=== PATIENT | male | born 1965 | race Two or more races ===

== ENCOUNTER 2019-06-24 21:37 | Inpatient (IN) | payer MEDICAID ==
[~2019-06-24] VITALS: Ht 165.1 cm; Wt 71.9 kg
[2019-06-24] MEDS ORDERED: NIFEdipine 10 MG CAP ONE (21:47)
[2019-06-24] MEDS ORDERED: NIFEdipine 10 MG CAP PO ONE (22:00)
[2019-06-24 22:34] LABS: Basophils # (auto) 0 uL; Basophils % (auto) 0.5 % (0.0-2.0); Eosinophils # (auto) 0.1 uL; Eosinophils % (auto) 1.9 % (0.0-7.0); Hematocrit 47.7 % (41.0-53.0); Hemoglobin 15.8 g/dL (13.5-17.5); Lymphocytes # (auto) 0.7 uL; Mean Corpuscular Hemoglobin 29.8 pg (28.0-32.0); Mean Corpuscular Volume 90.4 fL (80.0-100.0); Monocytes # (auto) 0.5 uL; Monocytes % (auto) 8.1 % (0.0-12.0); Neutrophils # (auto) 5.4 uL; Neutrophils % (auto) 79.5 % (37.0-80.0); Nucleated Red Blood Cells % 0.1 %; Platelet Count (auto) 138 10^3/uL (140-450); Red Blood Cells 5.28 10^6/uL (4.5-5.90); Red Cell Distribution Width 13.7 % (11.8-14.3); White Blood Cell 6.8 10^3/uL (4.4-10.8)
[2019-06-24] MEDS ORDERED: HYDROcodone-ACET 7.5/325MG TAB PO ONE (22:45)
[2019-06-24 22:50] LABS: Albumin 3.2 g/dL (3.4-5.0); BUN/Creatinine Ratio 13.8; Calcium 8.3 mg/dL (8.5-10.1); Magnesium 1.8 mg/dL (1.6-2.6); Potassium 4.2 mmol/L (3.5-5.1)
[2019-06-24 22:55] LABS: Bilirubin, Total 0.6 mg/dL (0.2-1.0); Total Protein 7.7 g/dL (6.4-8.2)
[2019-06-25] MEDS ORDERED: PIPERACILLIN-TAZOB 3.375GM 100 ML IV ONE (00:15)
[2019-06-25] MEDS ORDERED: SODIUM CHLORIDE 0.9% 1,000 ML IV ONE (00:15)
[2019-06-25] MEDS ORDERED: ASPirin-EC 325mg tab PO ONE (00:15)
[2019-06-25 00:36] LABS: Urine Bacteria NONE SEEN /hpf (None Seen); Urine Blood Negative /uL (Negative); Urine Hyaline Cast FEW /lpf (0 - 2); Urine Mucus FEW (None Seen); Urine Specific Gravity 1.021 (1.001-1.035); Urine WBC 1 /hpf (0 - 3)
[2019-06-25 00:49] LABS: Alcohol, Urine < 3.0 mg/dL (0-5); Amphetamine Screen, Urine POSITIVE (NEGATIVE); Barbiturate Scree,Urine NEGATIVE (NEGATIVE); Benzodiazephine Screen, Urine NEGATIVE (NEGATIVE); Cannabinoid Screen, Urine NEGATIVE (NEGATIVE); Cocaine Screen, Urine NEGATIVE (NEGATIVE); Phencyclidine Screen, Urine NEGATIVE (NEGATIVE)
[2019-06-25 00:57] LABS: Opiate Scree,Urine NEGATIVE (NEGATIVE)
[2019-06-25] MEDS ORDERED: TEMAZEPAM 15 MG CAP PO PRN (02:30)
[2019-06-25] MEDS ORDERED: MORPHINE SULF INJ 2 MG/ML SYRINGE 1ML IV PRN (02:30)
[2019-06-25] MEDS ORDERED: ATORVASTATIN 20 MG TAB PO ONE (02:30)
[2019-06-25] MEDS ORDERED: METOPROLOL TARTRATE 25 MG TAB PO ONE (02:30)
[2019-06-25] MEDS ORDERED: ONDANSETRON HCL 4 MG/2 ML VIAL IV PRN (02:30)
[2019-06-25] MEDS ORDERED: ACETAMINOPHEN 325 MG TAB PO PRN (02:30)
[2019-06-25] MEDS ORDERED: NITROGLYCERIN 0.4 MG SL TAB SL PRN (02:30)
[2019-06-25] MEDS ORDERED: cefTRIAXone 1GM/50ML D5W 50 ML IV SCH (09:00)
[2019-06-25] MEDS ORDERED: ASPirin 81 mg TAB PO SCH (10:00)
[2019-06-25] MEDS ORDERED: AZITHROMYCIN 500MG/ 250ML 250 ML IV SCH (10:00)
[2019-06-25] MEDS: FAMOTIDINE 20 MG TAB PO SCH ×2 (10:06→22:21)
[2019-06-25] MEDS: METOPROLOL TARTRATE 25 MG TAB PO SCH ×2 (10:07→22:21)
[2019-06-25] MEDS ORDERED: guaiFENesin-DM 100/10mg/5ml SYR PO PRN (11:45)
[2019-06-25] MEDS: LOSARTAN POTASSIUM 50 MG TAB PO SCH (12:00)
[2019-06-25] MEDS: amLODIPine BESYLATE 5 MG TAB PO SCH (12:00)
--- NOTE | 2019-06-25 12:00 | NUR ---
RECEIVED REPORT FROM CHART CHANGERTAMARA TORREZ, WILL AWAIT PATIENT.
[2019-06-25 12:07] LABS: Cholesterol 112 mg/dL (< 200); HDL Cholesterol 48 mg/dL (40-59); LDL Cholesterol 65 mg/dL (< 100); Triglycerides 56 mg/dL (< 150)
[2019-06-25 12:48] VITALS: BP 124/93
--- NOTE | 2019-06-25 12:54 | NUR ---
RECEIVED PATIENT TO THE FLOOR. AWAKE ALERT AND ORIENTED. PATIENT INSTRUCTED ON THE PLAN OF CARE AND TO CALL NEEDED. BED LOCKED IN LOWEST POSITION WITH TWO SIDE RAILS UP AND CALL LIGHT IN REACH.
[2019-06-25 13:00] VITALS: BP 124/93
[2019-06-25] MEDS: IPRATROPIUM BROM 0.5 MG/2.5ML INH SOL NEB SCH ×3 (14:25→22:56)
[2019-06-25] MEDS: ALBUTEROL SULF 2.5 MG/0.5ML(0.5%) NEB SOLN NEB SCH ×3 (14:25→22:56)
[2019-06-25 14:30] VITALS: BP 126/96
--- NOTE | 2019-06-25 14:51 | NUR ---
D/C Planning Per consult for home health safety evaluation. Faxed order to [facility] Fax:). Per Sherry with [facility] patient has been accepted and service to start within 24-48hrs upon d/c day. Faxed order to [facility] Fax:) to obtain authorization.
--- NOTE | 2019-06-25 15:00 | NUR ---
PATIENT STATES HE DOESNT TAKE ANY HOME MEDICATIONS.
[2019-06-25] MEDS: levoFLOXacin 500MG 100 ML IV SCH (16:03)
--- NOTE | 2019-06-25 16:44 | NUR ---
Received followed up called from Nell with [facility] to provide authorization for home health [id number]
[2019-06-25 17:00] VITALS: BP 136/105
--- NOTE | 2019-06-25 17:10 | NUR ---
PAGED DR Anjali SPAULDING FOR PATIENT. PATIENT EXPERIENCING ANXIETY AND IS VERY RESTLESS. PATIENT STATES HE HAS NOT TAKEN ANY KIND OF DRUGS AND HAS ONLY BEEN AROUND PEOPLE WHO HAVE. I REQUESTED ANTI ANXIETY MEDICATION FOR PATIENT. ORDERS RECEIVED FOR XANAX 0.25 MG Q 12 PRN FOR ANXIETY.
[2019-06-25] MEDS ORDERED: ALPRAZolam 0.25 MG TAB PO PRN (17:15)
--- NOTE | 2019-06-25 17:41 | NUR ---
PATIENT C/O SOB. PATIENT IS ON O2 2 L NC AT THIS TIME WITH SATURATION OF 94 % PATIENT MEDICATED HOWEVER IS STILL EXPERIENCING ANXIETY. EDUCATED PATIENT ON THE PLAN OF CARE AND THE MEDICATION GIVEN. I ASKED PATIENT IF HE TAKES ANY RECREATIONAL MEDICATIONS AND HE STATES NO. I EXPLAINED TO PATIENT THE NEED TO KNOW SO WE CAN TREAT ANY SIDE EFFECTS HE MAY BE EXPERIENCING. PATIENT STILL DENIES. WILL CONTINUE TO MONITOR.
--- NOTE | 2019-06-25 18:15 | NUR ---
PATIENT VERY ANGRY BEING AGGRESSIVE WITH VOCABULARY, AND ACCUSING NURSES OF GIVING MEDICATIONS TO CAUSE HIS PARANOIA WELL REFUSING MEDICATIONS AND ECHO AT THIS TIME
--- NOTE | 2019-06-25 18:51 | NUR ---
PATIENTS DAUGHTER SLICK STATES PATIENT CONFESSED TO USING METHAMPHETAMINES DUE TO PAIN. DAUGHTER SLICK SAID SHE FOUND IT IN HER CAR IN HIS BAG. DAUGHTER WOULD LIKE TO SEE IF THERE IS ANYTHING DOCTOR CAN DO FOR A DETOX OF SOME KIND. I WILL ENDORSE TO NOC NURSE.
--- NOTE | 2019-06-25 19:35 | NUR ---
Opening Shift Note Assumed care of patient, awake and alert x4. No S/S of distress/SOB, or pain. Family is at bedside. Call light is within reach, side rails up x2, bed is in lowest position. Instructed on POC and to call for assist PRN, will continue to monitor for changes Q1hr and PRN.
[2019-06-25 22:00] VITALS: BP 127/95
[2019-06-25] MEDS ORDERED: ATORVASTATIN 20 MG TAB PO SCH (22:00)
--- NOTE | 2019-06-26 00:21 | NUR ---
Paged Dr. Ewing. Dr. Pérez is covering. Patient is very restless and anxious. New order received for xanax 0.25 mg one time. Will carry out and continue to monitor.
[2019-06-26] MEDS ORDERED: ALPRAZolam 0.25 MG TAB PO ONE (00:30)
[2019-06-26 05:00] VITALS: BP 145/94
[2019-06-26] MEDS: IPRATROPIUM BROM 0.5 MG/2.5ML INH SOL NEB SCH ×3 (06:11→14:17)
[2019-06-26] MEDS: ALBUTEROL SULF 2.5 MG/0.5ML(0.5%) NEB SOLN NEB SCH ×3 (06:11→14:17)
[2019-06-26 07:53] LABS: Basophils # (auto) 0 uL; Basophils % (auto) 0.3 % (0.0-2.0); Eosinophils # (auto) 0 uL; Hematocrit 45.8 % (41.0-53.0); Lymphocytes # (auto) 0.9 uL; Lymphocytes % (auto) 16.1 % (10.0-50.0); Mean Corpuscular Hemoglobin 29.5 pg (28.0-32.0); Mean Corpuscular Hgb Conc. 32.7 g/dL (32.0-36.0); Mean Corpuscular Volume 90.2 fL (80.0-100.0); Monocytes # (auto) 0.3 uL; Monocytes % (auto) 6.1 % (0.0-12.0); Neutrophils # (auto) 4.3 uL; Neutrophils % (auto) 77.5 % (37.0-80.0); Nucleated Red Blood Cells % 0.1 %; Platelet Count (auto) 125 10^3/uL (140-450); Red Blood Cells 5.07 10^6/uL (4.5-5.90); Red Cell Distribution Width 14.1 % (11.8-14.3); White Blood Cell 5.5 10^3/uL (4.4-10.8)
[2019-06-26 08:37] VITALS: BP 146/101
[2019-06-26] MEDS ORDERED: ASPirin 81 mg TAB PO SCH (10:00)
[2019-06-26] MEDS: levoFLOXacin 500MG 100 ML IV SCH (11:08)
[2019-06-26] MEDS: amLODIPine BESYLATE 5 MG TAB PO SCH (11:09)
[2019-06-26] MEDS: FAMOTIDINE 20 MG TAB PO SCH (11:10)
[2019-06-26] MEDS: LOSARTAN POTASSIUM 50 MG TAB PO SCH (11:11)
[2019-06-26] MEDS: METOPROLOL TARTRATE 25 MG TAB PO SCH (11:12)
[2019-06-26 13:01] VITALS: BP 144/100
[2019-06-26] MEDS ORDERED: ASPI81CH43 PO (15:56)
[2019-06-26] MEDS ORDERED: AML5T PO (15:56)
[2019-06-26] MEDS ORDERED: MET25T PO (15:56)
[2019-06-26] MEDS ORDERED: DEXT1SYP9 PO (15:56)
[2019-06-26] MEDS ORDERED: ALBUAER3 IN (15:56)
[2019-06-26] MEDS ORDERED: IPRIH IN (15:56)
[2019-06-26] MEDS ORDERED: LOSA-69 PO (15:56)
[2019-06-26] MEDS ORDERED: LEVO500T21 PO (15:56)
--- NOTE | 2019-06-26 16:35 | NUR ---
NOTIFICATION DR. [facility]PO [facility] RESCINDED. 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
[2019-06-26 16:48] VITALS: BP 146/101
--- NOTE | 2019-06-26 18:05 | NUR ---
D/C PIV PIV OF THE RIGHT FA DC WITH TIP INTACT. NO SWELLING, REDNESS,BRUISING OR PAIN. PATIENT TOLERATED REMOVAL.
--- NOTE | 2019-06-28 14:44 | NUR ---
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 I called patient and he is refusing home health at this time.
== END 2019-06-26 18:56 | disposition home health service (06) | DRG 139 ==
LOC: ER 21:38 → TELE 21:39 → TELE-EAST 06-25 12:05
PROVIDERS: ADMIT Nurse Practitioner; ATTEND Internal Medicine
DX: J18.9 Pneumonia, unspecified organism (principal); F15.20 Other stimulant dependence, uncomplicated; I24.8 Other forms of acute ischemic heart disease; I10 Essential (primary) hypertension; M19.90 Unspecified osteoarthritis, unspecified site; J40 Bronchitis, not specified as acute or chronic; Z91.19 Patient's noncompliance with other medical treatment and regimen; I16.0 Hypertensive urgency
CPT/HCPCS: 36415; 71046; 80048; 80053; 80061; 80307; 81001; 83735; 83880; 84484; 85025; 87040; 87804; 93005; 93306; 94640; 96365; 96367; 96368; 96375; 99291; G0378; J0696; J1956; J2405; J2543

== ENCOUNTER → 2019-08-01 | Emergency (ER) | payer MEDICAID ==
[~2019-08-01] VITALS: Ht 167.6 cm; Wt 72.7 kg
[~2019-08-01] MED LIST: ALBUAER3 IN; AML5T PO; ASPI81CH43 PO; ASPirin 325 MG TAB PO ONE; DEXT1SYP9 PO; IPRIH IN; LEVO500T21 PO; LOSA-69 PO; MET25T PO; cloNIDine HCL 0.1 MG TAB PO ONE
[2019-08-01 03:46] LABS: Basophils # (auto) 0 10 ^3/uL (0-0.2); Basophils % (auto) 0.6 % (0.0-2.0); Eosinophils # (auto) 0.4 10 ^3/uL (0-0.8); Eosinophils % (auto) 6.2 % (0.0-7.0); Hematocrit 45.1 % (41.0-53.0); Hemoglobin 14.8 g/dL (13.5-17.5); Lymphocytes # (auto) 1.8 10 ^3/uL (0.4-5.4); Lymphocytes % (auto) 30.9 % (10.0-50.0); Mean Corpuscular Hemoglobin 29.1 pg (28.0-32.0); Mean Corpuscular Hgb Conc. 32.9 g/dL (32.0-36.0); Mean Corpuscular Volume 88.6 fL (80.0-100.0); Monocytes # (auto) 0.8 10 ^3/uL (0-1.3); Monocytes % (auto) 13.2 % (0.0-12.0); Neutrophils # (auto) 2.9 10 ^3/uL (1.6-8.6); Neutrophils % (auto) 49.1 % (37.0-80.0); Nucleated Red Blood Cells % 0.2 %; Platelet Count (auto) 222 10^3/uL (140-450); Red Cell Distribution Width 14.3 % (11.8-14.3); White Blood Cell 5.9 10^3/uL (4.4-10.8)
[2019-08-01 03:59] LABS: Albumin 3.4 g/dL (3.4-5.0); Anion Gap 6 (5-15); BUN/Creatinine Ratio 23.9; Blood Urea Nitrogen 21 mg/dL (7-18); Calcium 8.3 mg/dL (8.5-10.1); Carbon Dioxide 26 mmol/L (21-32); Chloride 106 mmol/L (98-107); GFR African American 116 mL/min; GFR Non-African American 96 mL/min; Glucose 100 mg/dL (74-106); Magnesium 2.1 mg/dL (1.6-2.6); Potassium 3.5 mmol/L (3.5-5.1); Sodium 138 mmol/L (136-145)
[2019-08-01 04:00] VITALS: BP 155/107
[2019-08-01 04:10] LABS: Alanine Aminotransferase 46 U/L (16-61); Alkaline Phosphatase 111 U/L (45-117); Aspartate Aminotransferase 33 U/L (15-37); Bilirubin, Total 0.3 mg/dL (0.2-1.0); Total Protein 7.5 g/dL (6.4-8.2)
[2019-08-01 04:14] LABS: INR 1.04 (0.9-1.15); Partial Thromboplastin Time 32.8 sec (23.64-32.05)
[2019-08-01 05:40] LABS: Urine Bacteria NONE SEEN /hpf (None Seen); Urine Blood Negative /uL (Negative); Urine Mucus FEW (None Seen); Urine Specific Gravity 1.016 (1.001-1.035); Urine WBC <1 /hpf (0 - 3)
== END | disposition home or self-care (01) ==
LOC: ER 02:35
DX: I10 Essential (primary) hypertension (principal); M19.90 Unspecified osteoarthritis, unspecified site; I25.2 Old myocardial infarction
CPT/HCPCS: 36415; 71045; 80053; 81001; 83735; 84484; 85025; 85610; 85730; 93005

== ENCOUNTER 2020-12-13 00:54 | Emergency (ER) | payer MEDICAID ==
[~2020-12-13] VITALS: Ht 167.6 cm; Wt 70.8 kg
[2020-12-13 00:54] VITALS: BP 196/135
[~2020-12-13 00:54] MED LIST changes: -ASPirin 325 MG TAB PO ONE; -LEVO500T21 PO; +LEVO500T31 PO; -cloNIDine HCL 0.1 MG TAB PO ONE
[2020-12-13] MEDS ORDERED: cloNIDine HCL 0.1 MG TAB PO ONE (02:15)
== END 2020-12-13 03:45 | disposition left against medical advice (07) ==
LOC: ER 00:57
DX: M79.644 Pain in right finger(s) (principal); Z53.21 Procedure and treatment not carried out due to patient leaving prior to being seen by health care provider
CPT/HCPCS: 73130

== ENCOUNTER 2020-12-14 21:20 | Inpatient (IN) | payer MEDICAID ==
[~2020-12-14] VITALS: Ht 167.6 cm; Wt 71.0 kg
[2020-12-14] MEDS ORDERED: cloNIDine HCL 0.1 MG TAB PO ONE (21:45)
[2020-12-14 22:28] LABS: Basophils # (auto) 0 10 ^3/uL (0-0.2); Basophils % (auto) 0.5 % (0.0-2.0); Eosinophils # (auto) 0.3 10 ^3/uL (0-0.8); Eosinophils % (auto) 3.7 % (0.0-7.0); Hematocrit 46.5 % (41.0-53.0); Hemoglobin 15.2 g/dL (13.5-17.5); Lymphocytes # (auto) 1.5 10 ^3/uL (0.4-5.4); Lymphocytes % (auto) 21.3 % (10.0-50.0); Mean Corpuscular Hemoglobin 29.7 pg (28.0-32.0); Mean Corpuscular Hgb Conc. 32.8 g/dL (32.0-36.0); Mean Corpuscular Volume 90.6 fL (80.0-100.0); Monocytes # (auto) 0.5 10 ^3/uL (0-1.3); Monocytes % (auto) 6.4 % (0.0-12.0); Neutrophils # (auto) 4.9 10 ^3/uL (1.6-8.6); Neutrophils % (auto) 68.1 % (37.0-80.0); Nucleated Red Blood Cells % 0.1 %; Red Blood Cells 5.13 10^6/uL (4.5-5.90); Red Cell Distribution Width 16.3 % (11.8-14.3); White Blood Cell 7.2 10^3/uL (4.4-10.8)
[2020-12-14 22:45] LABS: INR 1.08 (0.9-1.15); Partial Thromboplastin Time 26.6 sec (23.6-33.0)
[2020-12-14 22:47] LABS: Calcium 8.3 mg/dL (8.5-10.1); Magnesium 2.3 mg/dL (1.6-2.6); Potassium 4.4 mmol/L (3.5-5.1)
[2020-12-14 22:54] LABS: Bilirubin, Total 1.1 mg/dL (0.2-1.0); Total Protein 7.4 g/dL (6.4-8.2)
[2020-12-14] MEDS ORDERED: HYDROcodone-ACET 5/325MG TAB PO ONE (23:00)
[2020-12-14] MEDS ORDERED: LABETALOL HCL 5 MG/ML 4ML SYRINGE IV ONE (23:45)
[2020-12-15 02:09] LABS: Urine Bacteria NONE SEEN /hpf (None Seen); Urine Blood Negative /uL (Negative); Urine Hyaline Cast FEW /lpf (0 - 2); Urine Mucus FEW (None Seen); Urine Specific Gravity 1.027 (1.001-1.035); Urine WBC 1 /hpf (0 - 3)
[2020-12-15] MEDS ORDERED: ONDANSETRON HCL 4 MG/2 ML VIAL IV PRN (03:45)
[2020-12-15] MEDS ORDERED: ACETAMINOPHEN 500 MG TAB PO PRN (03:45)
[2020-12-15] MEDS ORDERED: MORPHINE SULFATE INJECTION 2 MG/2 ML SYRG IV PRN (03:45)
[2020-12-15] MEDS ORDERED: FUROSEMIDE 40 MG/4 ML VIAL IV ONE (03:45)
[2020-12-15] MEDS: FUROSEMIDE 40 MG/4 ML VIAL IV SCH ×2 (09:56→21:27)
[2020-12-15] MEDS: amLODIPine BESYLATE 5 MG TAB PO SCH ×3 (09:57→13:49)
[2020-12-15] MEDS ORDERED: cefTRIAXone 1GM/50ML D5W 50 ML IV SCH (10:00)
[2020-12-15] MEDS ORDERED: METOPROLOL TARTRATE 25 MG TAB PO SCH (10:00)
[2020-12-15] MEDS ORDERED: POTASSIUM CHL 20 Meq TABLET PO SCH (10:00)
[2020-12-15 12:20] LABS: Potassium 3.5 mmol/L (3.5-5.1)
[2020-12-15 12:25] LABS: BUN/Creatinine Ratio 20.8; Calcium 8.3 mg/dL (8.5-10.1)
[2020-12-15] MEDS: CARVEDILOL 3.125 MG TAB PO SCH ×2 (13:30→21:28)
[2020-12-15 19:07] VITALS: BP 128/72
[2020-12-15] MEDS: POTASSIUM CHL 10 Meq TABLET PO SCH (21:14)
[2020-12-15 22:00] VITALS: BP 140/102
[2020-12-16 05:00] VITALS: BP 154/107
[2020-12-16 05:50] LABS: Calcium 8.5 mg/dL (8.5-10.1); Potassium 3.8 mmol/L (3.5-5.1)
[2020-12-16 09:00] VITALS: BP 151/105
[2020-12-16] MEDS ORDERED: LISINOPRIL 5 MG TAB PO SCH (10:00)
[2020-12-16] MEDS ORDERED: CARV6.2551 PO (11:52)
[2020-12-16] MEDS ORDERED: AMLO-496 PO (11:52)
[2020-12-16] MEDS ORDERED: SULF400T11 PO (11:52)
[2020-12-16] MEDS ORDERED: LOSA-69 PO (11:52)
[2020-12-16] MEDS ORDERED: TORS5TAB8 PO (11:53)
[2020-12-16] MEDS: FUROSEMIDE 40 MG/4 ML VIAL IV SCH (12:39)
[2020-12-16] MEDS: CARVEDILOL 3.125 MG TAB PO SCH (12:39)
[2020-12-16] MEDS: POTASSIUM CHL 10 Meq TABLET PO SCH (12:40)
[2020-12-16] MEDS: amLODIPine BESYLATE 5 MG TAB PO SCH (12:40)
[2020-12-16 13:00] VITALS: BP 162/114
[2020-12-16 15:20] VITALS: BP 162/114
[2020-12-16 16:41] VITALS: BP 135/106
== END 2020-12-16 18:48 | disposition home or self-care (01) | DRG 199 ==
LOC: EDBD 21:20 → ER 21:20 → OVERFLOW 12-15 03:52 → TELE-WESTW 12-15 16:52
PROVIDERS: ADMIT Hospitalist; ATTEND Hospitalist
DX: I16.0 Hypertensive urgency (principal); J96.01 Acute respiratory failure with hypoxia; I50.23 Acute on chronic systolic (congestive) heart failure; I31.3 Pericardial effusion (noninflammatory); N18.6 End stage renal disease; I42.9 Cardiomyopathy, unspecified; I13.2 Hypertensive heart and chronic kidney disease with heart failure and with stage 5 chronic kidney disease, or end stage renal disease; L03.011 Cellulitis of right finger; X58.XXXA Exposure to other specified factors, initial encounter; J98.11 Atelectasis; T14.8XXA Other injury of unspecified body region, initial encounter; I25.2 Old myocardial infarction; Z79.82 Long term (current) use of aspirin; Z82.49 Family history of ischemic heart disease and other diseases of the circulatory system; Y93.89 Activity, other specified; Y92.89 Other specified places as the place of occurrence of the external cause; Y99.8 Other external cause status; Z20.822 Contact with and (suspected) exposure to COVID-19
CPT/HCPCS: 36415; 71045; 73200; 80048; 80053; 81001; 83735; 83880; 84484; 85025; 85379; 85610; 85730; 87426; 93005; 93306; 93970; 96365; 96367; 96375; G0378; J0696; J3490

== ENCOUNTER 2021-05-11 22:02 | Emergency (ER) | payer MEDICAID ==
[~2021-05-11] VITALS: Ht 167.6 cm; Wt 68.0 kg
[~2021-05-11 22:02] MED LIST changes: -AML5T PO; +AMLO-496 PO; +CARV6.2551 PO; -LEVO500T31 PO; -MET25T PO; +SULF400T11 PO; +TORS5TAB8 PO
[2021-05-11 22:13] VITALS: BP 175/100
== END 2021-05-12 04:00 | disposition left against medical advice (07) ==
LOC: ER 22:02
DX: M79.642 Pain in left hand (principal); M79.641 Pain in right hand; Z53.21 Procedure and treatment not carried out due to patient leaving prior to being seen by health care provider

== ENCOUNTER 2021-07-07 01:12 | Inpatient (IN) | payer MEDICAID ==
[~2021-07-07] VITALS: Ht 167.6 cm; Wt 74.7 kg
[2021-07-07] MEDS ORDERED: NITROGLYCERIN 0.4 MG SL TAB SL ONE (02:30)
[2021-07-07] MEDS ORDERED: HYDROmorphone HCL 2 MG/ML VL IV ONE (02:30)
[2021-07-07] MEDS ORDERED: FUROSEMIDE 40 MG/4 ML VIAL IV ONE (02:30)
[2021-07-07 03:17] LABS: Basophils # (auto) 0.1 10 ^3/uL (0-0.2); Basophils % (auto) 0.9 % (0.0-2.0); Eosinophils # (auto) 0.3 10 ^3/uL (0-0.8); Eosinophils % (auto) 3.9 % (0.0-7.0); Hemoglobin 14.6 g/dL (13.5-17.5); Lymphocytes # (auto) 1.5 10 ^3/uL (0.4-5.4); Mean Corpuscular Hemoglobin 29.2 pg (28.0-32.0); Mean Corpuscular Hgb Conc. 32.4 g/dL (32.0-36.0); Monocytes # (auto) 0.3 10 ^3/uL (0-1.3); Monocytes % (auto) 5.1 % (0.0-12.0); Neutrophils # (auto) 4.4 10 ^3/uL (1.6-8.6); Neutrophils % (auto) 67.1 % (37.0-80.0); Nucleated Red Blood Cells % 0.2 %; Red Cell Distribution Width 14.7 % (11.8-14.3); White Blood Cell 6.5 10^3/uL (4.4-10.8)
[2021-07-07 03:31] LABS: INR 1.08 (0.9-1.15); Partial Thromboplastin Time 27.9 sec (23.6-33.0)
[2021-07-07 03:35] LABS: Calcium 8.5 mg/dL (8.5-10.1); Potassium 3.6 mmol/L (3.5-5.1)
[2021-07-07 03:38] LABS: Albumin 2.9 g/dL (3.4-5.0); BUN/Creatinine Ratio 17.4; Magnesium 2.5 mg/dL (1.6-2.6)
[2021-07-07 03:43] LABS: Urine WBC None Seen /hpf (0 - 3)
[2021-07-07 03:43] LABS: Bilirubin, Total 0.7 mg/dL (0.2-1.0)
[2021-07-07 03:55] LABS: Urine Bacteria NONE SEEN /hpf (None Seen); Urine Blood Negative /uL (Negative); Urine Hyaline Cast FEW /lpf (0 - 2); Urine Mucus FEW (None Seen); Urine Specific Gravity 1.006 (1.001-1.035)
[2021-07-07] MEDS ORDERED: DOCUSATE SOD 100 MG CAP PO PRN (04:45)
[2021-07-07] MEDS ORDERED: ACETAMINOPHEN 325 MG TAB PO PRN (04:45)
[2021-07-07] MEDS ORDERED: hydrALAZINE HCL 20 MG/ML VL IV PRN (04:45)
[2021-07-07] MEDS ORDERED: ONDANSETRON HCL 4 MG/2 ML VIAL IV PRN (04:45)
[2021-07-07] MEDS ORDERED: HYDROcodone-ACET 5/325MG TAB PO PRN (04:45)
[2021-07-07] MEDS ORDERED: NITROGLYCERIN 0.4 MG SL TAB SL PRN (05:15)
[2021-07-07] MEDS ORDERED: MORPHINE SULFATE INJECTION 2 MG/ML SYRG IV PRN (05:15)
[2021-07-07] MEDS: SODIUM CHLOR 0.9% PF (SALINE LOCK) 10ML VIAL/SYR IV SCH ×3 (05:52→21:01)
[2021-07-07 05:59] LABS: Basophils # (auto) 0 10 ^3/uL (0-0.2); Basophils % (auto) 0.7 % (0.0-2.0); Eosinophils # (auto) 0.3 10 ^3/uL (0-0.8); Eosinophils % (auto) 4.5 % (0.0-7.0); Hematocrit 44.4 % (41.0-53.0); Hemoglobin 14.8 g/dL (13.5-17.5); Lymphocytes # (auto) 1.6 10 ^3/uL (0.4-5.4); Lymphocytes % (auto) 24.1 % (10.0-50.0); Mean Corpuscular Hemoglobin 29.5 pg (28.0-32.0); Mean Corpuscular Hgb Conc. 33.2 g/dL (32.0-36.0); Mean Corpuscular Volume 88.7 fL (80.0-100.0); Monocytes # (auto) 0.4 10 ^3/uL (0-1.3); Monocytes % (auto) 5.5 % (0.0-12.0); Neutrophils # (auto) 4.3 10 ^3/uL (1.6-8.6); Neutrophils % (auto) 65.2 % (37.0-80.0); Nucleated Red Blood Cells % 0.4 %; Red Blood Cells 5.01 10^6/uL (4.5-5.90); Red Cell Distribution Width 14.5 % (11.8-14.3); White Blood Cell 6.6 10^3/uL (4.4-10.8)
[2021-07-07] MEDS ORDERED: ALBUTEROL SULF HFA 90MCG INH 200DOSE IN SCH (06:00)
[2021-07-07 06:18] LABS: Calcium 7.9 mg/dL (8.5-10.1); Potassium 3.5 mmol/L (3.5-5.1)
[2021-07-07 06:25] LABS: BUN/Creatinine Ratio 16.7; Bilirubin, Total 1.1 mg/dL (0.2-1.0); Total Protein 7.3 g/dL (6.4-8.2)
[2021-07-07 06:56] VITALS: BP 144/111
[2021-07-07 09:58] VITALS: BP 154/113
[2021-07-07] MEDS ORDERED: FUROSEMIDE 40 MG/4 ML VIAL IV SCH (10:00)
[2021-07-07] MEDS: HEPARIN SODIUM (PORCINE) 5000 UNITS/ML 1ML VIAL SC SCH ×2 (10:03→21:01)
[2021-07-07] MEDS: AZITHROMYCIN 500MG/ 250ML 250 ML IV SCH (10:16)
[2021-07-07] MEDS: FAMOTIDINE (10MG/ML) 2ML VL IV SCH (10:20)
[2021-07-07] MEDS: ASPirin 81 mg TAB PO SCH (10:21)
[2021-07-07] MEDS: CARVEDILOL 12.5 MG TAB PO SCH ×2 (10:21→21:05)
[2021-07-07] MEDS ORDERED: ALBUTEROL SULF 2.5 MG/0.5ML(0.5%) NEB SOLN NEB PRN (11:00)
[2021-07-07 12:31] VITALS: BP 103/73
[2021-07-07 14:27] LABS: Alcohol, Urine < 3.0 mg/dL (0-10); Amphetamine Screen, Urine POSITIVE (NEGATIVE); Barbiturate Scree,Urine NEGATIVE (NEGATIVE); Benzodiazephine Screen, Urine NEGATIVE (NEGATIVE); Cannabinoid Screen, Urine NEGATIVE (NEGATIVE); Cocaine Screen, Urine NEGATIVE (NEGATIVE); Phencyclidine Screen, Urine NEGATIVE (NEGATIVE)
[2021-07-07 14:33] LABS: Opiate Scree,Urine NEGATIVE (NEGATIVE)
[2021-07-07 16:41] VITALS: BP 118/87
[2021-07-07] MEDS: FUROSEMIDE 40 MG/4 ML VIAL IV SCH (21:01)
[2021-07-07 21:47] VITALS: BP 133/103
[2021-07-08 05:00] VITALS: BP 133/79
[2021-07-08 05:33] LABS: Basophils # (auto) 0 10 ^3/uL (0-0.2); Basophils % (auto) 0.6 % (0.0-2.0); Eosinophils # (auto) 0.5 10 ^3/uL (0-0.8); Eosinophils % (auto) 7.6 % (0.0-7.0); Hematocrit 43.1 % (41.0-53.0); Hemoglobin 14.4 g/dL (13.5-17.5); Lymphocytes # (auto) 1.5 10 ^3/uL (0.4-5.4); Lymphocytes % (auto) 24.7 % (10.0-50.0); Mean Corpuscular Hemoglobin 29.7 pg (28.0-32.0); Mean Corpuscular Hgb Conc. 33.5 g/dL (32.0-36.0); Mean Corpuscular Volume 88.8 fL (80.0-100.0); Monocytes # (auto) 0.4 10 ^3/uL (0-1.3); Neutrophils # (auto) 3.6 10 ^3/uL (1.6-8.6); Neutrophils % (auto) 60.1 % (37.0-80.0); Red Blood Cells 4.86 10^6/uL (4.5-5.90); Red Cell Distribution Width 14.6 % (11.8-14.3)
[2021-07-08] MEDS: FUROSEMIDE 40 MG/4 ML VIAL IV SCH ×2 (05:41→18:07)
[2021-07-08] MEDS: SODIUM CHLOR 0.9% PF (SALINE LOCK) 10ML VIAL/SYR IV SCH ×2 (05:41→14:00)
[2021-07-08] MEDS ORDERED: LORazepam 2MG/ML-1ML VIAL IV PRN (05:45)
[2021-07-08 05:58] LABS: Potassium 3.4 mmol/L (3.5-5.1)
[2021-07-08 06:09] LABS: Albumin 2.7 g/dL (3.4-5.0); BUN/Creatinine Ratio 23.8; Bilirubin, Total 0.9 mg/dL (0.2-1.0); Calcium 7.8 mg/dL (8.5-10.1); Total Protein 6.5 g/dL (6.4-8.2)
[2021-07-08 08:00] VITALS: BP 149/88
[2021-07-08 08:30] VITALS: BP 115/71
[2021-07-08] MEDS: AZITHROMYCIN 500MG/ 250ML 250 ML IV SCH (08:48)
[2021-07-08] MEDS: ASPirin 81 mg TAB PO SCH (08:48)
[2021-07-08] MEDS: FAMOTIDINE (10MG/ML) 2ML VL IV SCH (08:48)
[2021-07-08] MEDS: CARVEDILOL 12.5 MG TAB PO SCH (08:52)
[2021-07-08] MEDS: HEPARIN SODIUM (PORCINE) 5000 UNITS/ML 1ML VIAL SC SCH (08:53)
[2021-07-08] MEDS ORDERED: FUROSEMIDE 40 MG/4 ML VIAL IV ONE (12:00)
[2021-07-08] MEDS ORDERED: ALBUMIN 25% 100 ML IV ONE (12:00)
[2021-07-08 12:30] VITALS: BP 119/70
[2021-07-08 16:22] LABS: BUN/Creatinine Ratio 20.5; Calcium 8.2 mg/dL (8.5-10.1); Potassium 3.7 mmol/L (3.5-5.1)
[2021-07-08 17:00] VITALS: BP 132/95
[2021-07-08] MEDS ORDERED: FURO1TAB31 PO (17:04)
[2021-07-08] MEDS ORDERED: CAR125T PO (17:04)
[2021-07-08 17:31] VITALS: BP 119/70
== END 2021-07-08 18:27 | disposition home health service (06) | DRG 194 ==
LOC: ER 01:12 → EDBD 01:12 → TELE 05:01 → TELE-WESTW 09:56
PROVIDERS: ADMIT Nurse Practitioner Family; ATTEND Nurse Practitioner Family
DX: I13.0 Hypertensive heart and chronic kidney disease with heart failure and stage 1 through stage 4 chronic kidney disease, or unspecified chronic kidney disease (principal); N17.9 Acute kidney failure, unspecified; I42.8 Other cardiomyopathies; I50.23 Acute on chronic systolic (congestive) heart failure; R09.02 Hypoxemia; Z20.822 Contact with and (suspected) exposure to COVID-19; E87.6 Hypokalemia; R00.0 Tachycardia, unspecified; F15.10 Other stimulant abuse, uncomplicated; M19.90 Unspecified osteoarthritis, unspecified site; F19.10 Other psychoactive substance abuse, uncomplicated; I25.10 Atherosclerotic heart disease of native coronary artery without angina pectoris; Z91.19 Patient's noncompliance with other medical treatment and regimen; I25.2 Old myocardial infarction; Z82.49 Family history of ischemic heart disease and other diseases of the circulatory system; N18.30 Chronic kidney disease, stage 3 unspecified
CPT/HCPCS: 36415; 71045; 80048; 80053; 80307; 81001; 83036; 83735; 83880; 84484; 85025; 85379; 85610; 85730; 93005; 93306; 93970; 94640; 96374; 96375; G0378; J3490; P9047

== ENCOUNTER 2021-07-21 21:56 | Inpatient (IN) | payer MEDICAID ==
[~2021-07-21] VITALS: Ht 167.6 cm; Wt 72.7 kg
[~2021-07-21 21:56] MED LIST changes: -AMLO-496 PO; +CAR125T PO; -CARV6.2551 PO; -DEXT1SYP9 PO; +FURO1TAB31 PO; -LOSA-69 PO; -SULF400T11 PO; -TORS5TAB8 PO
[2021-07-21 23:17] LABS: Basophils # (auto) 0 10 ^3/uL (0-0.2); Basophils % (auto) 0.5 % (0.0-2.0); Eosinophils # (auto) 0.3 10 ^3/uL (0-0.8); Eosinophils % (auto) 4.6 % (0.0-7.0); Hematocrit 44.3 % (41.0-53.0); Hemoglobin 14.5 g/dL (13.5-17.5); Lymphocytes # (auto) 1.8 10 ^3/uL (0.4-5.4); Lymphocytes % (auto) 26.3 % (10.0-50.0); Mean Corpuscular Hemoglobin 29.2 pg (28.0-32.0); Mean Corpuscular Hgb Conc. 32.7 g/dL (32.0-36.0); Mean Corpuscular Volume 89.2 fL (80.0-100.0); Monocytes # (auto) 0.6 10 ^3/uL (0-1.3); Monocytes % (auto) 8.1 % (0.0-12.0); Neutrophils # (auto) 4.2 10 ^3/uL (1.6-8.6); Neutrophils % (auto) 60.5 % (37.0-80.0); Nucleated Red Blood Cells % 0.1 %; Red Blood Cells 4.97 10^6/uL (4.5-5.90); White Blood Cell 6.9 10^3/uL (4.4-10.8)
[2021-07-21 23:38] LABS: INR 1.13 (0.9-1.15); Partial Thromboplastin Time 27.6 sec (23.6-33.0)
[2021-07-21 23:43] LABS: Potassium 4.3 mmol/L (3.5-5.1)
[2021-07-21 23:47] LABS: Calcium 8.2 mg/dL (8.5-10.1); Magnesium 2.5 mg/dL (1.6-2.6)
[2021-07-21 23:52] LABS: Bilirubin, Total 0.5 mg/dL (0.2-1.0); Total Protein 6.8 g/dL (6.4-8.2)
[2021-07-22 01:14] LABS: Urine Bacteria FEW /hpf (None Seen); Urine Blood Negative /uL (Negative); Urine Mucus FEW (None Seen); Urine Specific Gravity 1.007 (1.001-1.035); Urine WBC 1 /hpf (0 - 3)
[2021-07-22] MEDS ORDERED: NITROGLYCERIN 0.4 MG SL TAB SL ONE (01:15)
[2021-07-22] MEDS ORDERED: FUROSEMIDE 40 MG/4 ML VIAL IV ONE ×2 (01:15→11:30)
[2021-07-22] MEDS ORDERED: SODIUM CHLORIDE 0.9% 500 ML IV ONE (09:45)
[2021-07-22] MEDS ORDERED: IOHEXOL 350 MG/ML 100ML IJ ONE (09:53)
[2021-07-22] MEDS ORDERED: SPIRONOLACTONE 25 MG TAB PO ONE (11:30)
[2021-07-22] MEDS ORDERED: MORPHINE SULFATE 4 MG/ML SYR/VIAL IV PRN (14:45)
[2021-07-22] MEDS ORDERED: NITROGLYCERIN 0.4 MG SL TAB SL PRN (14:45)
[2021-07-22] MEDS ORDERED: MORPHINE SULFATE INJECTION 2 MG/ML SYRG IV PRN ×2 (14:45)
[2021-07-22] MEDS ORDERED: hydrALAZINE HCL 20 MG/ML VL IV PRN (14:45)
[2021-07-22] MEDS ORDERED: cloNIDine HCL 0.1 MG TAB PO ONE (14:45)
[2021-07-22 15:18] LABS: Alcohol, Urine < 3.0 mg/dL (0-10); Amphetamine Screen, Urine NEGATIVE (NEGATIVE); Barbiturate Scree,Urine NEGATIVE (NEGATIVE); Benzodiazephine Screen, Urine NEGATIVE (NEGATIVE); Cannabinoid Screen, Urine NEGATIVE (NEGATIVE); Cocaine Screen, Urine NEGATIVE (NEGATIVE); Opiate Scree,Urine NEGATIVE (NEGATIVE); Phencyclidine Screen, Urine NEGATIVE (NEGATIVE)
[2021-07-22] MEDS: BUMETANIDE 2.5mg/10ml (0.25 mg/ml) INJ IV SCH (18:26)
[2021-07-22 22:00] VITALS: BP 138/103
[2021-07-22] MEDS: cloNIDine HCL 0.1 MG TAB PO SCH (23:01)
[2021-07-22] MEDS: POTASSIUM CHL 10 Meq TABLET PO SCH (23:02)
[2021-07-22] MEDS: CARVEDILOL 3.125 MG TAB PO SCH (23:02)
[2021-07-23 05:00] VITALS: BP 128/96
[2021-07-23 05:31] LABS: BUN/Creatinine Ratio 23.3; Calcium 8.1 mg/dL (8.5-10.1); Potassium 3.4 mmol/L (3.5-5.1)
[2021-07-23] MEDS: BUMETANIDE 2.5mg/10ml (0.25 mg/ml) INJ IV SCH (06:04)
[2021-07-23] MEDS: cloNIDine HCL 0.1 MG TAB PO SCH ×2 (06:04→14:40)
[2021-07-23 08:00] VITALS: BP 117/87
[2021-07-23 09:00] VITALS: BP 117/87
[2021-07-23] MEDS ORDERED: ENOXAPARIN SOD 40 MG/0.4 ML SYRINGE SC SCH (10:00)
[2021-07-23] MEDS: CARVEDILOL 3.125 MG TAB PO SCH (10:24)
[2021-07-23] MEDS: POTASSIUM CHL 10 Meq TABLET PO SCH (10:24)
[2021-07-23] MEDS ORDERED: CLON0.1T PO (12:42)
[2021-07-23] MEDS ORDERED: CAR125T PO (12:42)
[2021-07-23] MEDS ORDERED: FURO1TAB31 PO (12:42)
[2021-07-23] MEDS ORDERED: SACU1TAB PO (12:42)
[2021-07-23 13:05] VITALS: BP 122/91
== END 2021-07-23 17:22 | disposition home health service (06) | DRG 194 ==
LOC: ER 21:56 → EDBD 21:56 → TELE 07-22 14:35 → TELE-CENTR 07-22 20:10
PROVIDERS: ADMIT Hospitalist; ATTEND Hospitalist
DX: I13.2 Hypertensive heart and chronic kidney disease with heart failure and with stage 5 chronic kidney disease, or end stage renal disease (principal); N18.6 End stage renal disease; I42.8 Other cardiomyopathies; I16.0 Hypertensive urgency; I50.23 Acute on chronic systolic (congestive) heart failure; M19.90 Unspecified osteoarthritis, unspecified site; Z20.822 Contact with and (suspected) exposure to COVID-19; Z82.49 Family history of ischemic heart disease and other diseases of the circulatory system; Z91.14 Patient's other noncompliance with medication regimen
CPT/HCPCS: 36415; 71275; 80048; 80053; 80307; 81001; 83735; 83880; 84484; 85025; 85379; 85610; 85730; 87081; G0378

== ENCOUNTER 2021-10-02 16:26 | Emergency (ER) | payer MEDICAID ==
[~2021-10-02] VITALS: Ht 167.6 cm; Wt 68.0 kg
[~2021-10-02 16:26] MED LIST changes: +CLON0.1T PO; +SACU1TAB PO
[2021-10-02 16:28] VITALS: BP 171/122
[2021-10-02] MEDS ORDERED: ONDANSETRON HCL 4 MG/2 ML VIAL IV ONE (17:30)
[2021-10-02] MEDS ORDERED: KETOROLAC TROMETH 30 MG/ML 1ML VIAL IV ONE (17:30)
[2021-10-02] MEDS ORDERED: SODIUM CHLORIDE 0.9% 1,000 ML IV ONE (17:30)
== END 2021-10-02 19:27 | disposition left against medical advice (07) ==
LOC: ER 16:26
DX: R11.2 Nausea with vomiting, unspecified (principal); Z53.21 Procedure and treatment not carried out due to patient leaving prior to being seen by health care provider

== ENCOUNTER 2023-06-05 18:52 | Inpatient (IN) | payer MEDICAID ==
[~2023-06-05] VITALS: Ht 167.6 cm; Wt 71.4 kg
[2023-06-05] MEDS: LIDOCAINE VISCOUS 2% 15ML UD MT ONE (19:45)
[2023-06-05 19:46] LABS: Basophils # (auto) 0.1 10 ^3/uL (0-0.2); Basophils % (auto) 0.5 % (0.0-2.0); Eosinophils # (auto) 0.1 10 ^3/uL (0-0.8); Eosinophils % (auto) 1.1 % (0.0-7.0); Hematocrit 44.9 % (41.0-53.0); Hemoglobin 14.7 g/dL (13.5-17.5); Lymphocytes # (auto) 0.7 10 ^3/uL (0.4-5.4); Lymphocytes % (auto) 6.9 % (10.0-50.0); Mean Corpuscular Hemoglobin 29.7 pg (28.0-32.0); Mean Corpuscular Hgb Conc. 32.7 g/dL (32.0-36.0); Mean Corpuscular Volume 90.9 fL (80.0-100.0); Monocytes # (auto) 0.4 10 ^3/uL (0-1.3); Monocytes % (auto) 3.8 % (0.0-12.0); Neutrophils # (auto) 9.3 10 ^3/uL (1.6-8.6); Neutrophils % (auto) 87.7 % (37.0-80.0); Nucleated Red Blood Cells % 0.1 %; Red Blood Cells 4.94 10^6/uL (4.5-5.90); Red Cell Distribution Width 14.7 % (11.8-14.3); White Blood Cell 10.7 10^3/uL (4.4-10.8)
[2023-06-05] MEDS: MAALOX PLUS or MAALOX 30 ML PO ONE (19:46)
[2023-06-05] MEDS: cloNIDine HCL 0.1 MG TAB PO ONE (19:46)
[2023-06-05] MEDS: ONDANSETRON ODT 4 MG TAB PO ONE (19:47)
[2023-06-05 20:08] LABS: Alanine Aminotransferase 30 U/L (7-40); Albumin 3.7 g/dL (3.2-4.8); Alkaline Phosphatase 76 U/L (46-116); Anion Gap 8 (5-15); Aspartate Aminotransferase 26 U/L (13-40); BUN/Creatinine Ratio 18.1 (10.0-20.0); Bilirubin, Total 1.7 mg/dL (0.2-1.0); Blood Urea Nitrogen 17 mg/dL (9-23); Calcium 8.2 mg/dL (8.7-10.4); Carbon Dioxide 25 mmol/L (20-30); Chloride 105 mmol/L (98-107); Glucose 134 mg/dL (74-106); Lipase 24 U/L (12-53); Potassium 4.4 mmol/L (3.5-5.1); Sodium 138 mmol/L (136-145)
[2023-06-05 20:09] LABS: Total Protein 6.5 g/dL (5.7-8.2)
[2023-06-05 20:47] LABS: Urine Bacteria NONE SEEN /hpf (None Seen); Urine Blood TRACE /uL (Negative); Urine Clarity Clear (Clear); Urine Color Yellow (Yellow); Urine Mucus FEW (None Seen); Urine Protein, UAD 2+ (Negative); Urine Specific Gravity 1.028 (1.001-1.035); Urine Urobilinogen >12.0 mg/dL (Negative); Urine WBC 1 /hpf (0 - 3)
[2023-06-05 21:02] LABS: Amphetamine Screen, Urine Pos (NEGATIVE); Barbiturate Scree,Urine Neg (NEGATIVE); Benzodiazephine Screen, Urine Neg (NEGATIVE); Cocaine Screen, Urine Neg (NEGATIVE); Opiate Scree,Urine Neg (NEGATIVE); Phencyclidine Screen, Urine Neg (NEGATIVE)
[2023-06-05 21:03] LABS: Cannabinoid Screen, Urine Neg (NEGATIVE)
[2023-06-05] MEDS ORDERED: HYDROcodone-ACET 5/325MG TAB PO PRN (23:30)
[2023-06-05] MEDS ORDERED: POLYETHYLENE GLYCOL 17 GM PWDR PO PRN (23:30)
[2023-06-05] MEDS ORDERED: NITROGLYCERIN 0.4 MG SL TAB SL PRN (23:30)
[2023-06-05] MEDS ORDERED: ACETAMINOPHEN 325 MG TAB PO PRN (23:30)
[2023-06-05] MEDS ORDERED: ONDANSETRON HCL 4 MG/2 ML VIAL IV PRN (23:30)
[2023-06-05] MEDS ORDERED: MORPHINE SULFATE INJ 2 MG/ml SYRG IV PRN (23:30)
[2023-06-05 23:48] VITALS: BP 107/78; PULSE 91; RESP 17; TEMP 97.8; O2SAT 96
[2023-06-06] VITALS (15 sets, daily range): BP systolic 100–130; BP diastolic 68–96; PULSE 66–117; RESP 16–21; TEMP 97.4–98.2; O2SAT 92–99
[2023-06-06] MEDS: ENOXAPARIN SOD 100 MG/1 ML SYRINGE SC SCH (00:35)
[2023-06-06] MEDS: FUROSEMIDE 40 MG/4 ML VIAL IV ONE (00:37)
[2023-06-06] MEDS: ATORVASTATIN 20 MG TAB PO SCH (00:37)
[2023-06-06] MEDS: ASPirin 81 mg TAB PO SCH (00:37)
[2023-06-06] MEDS: AZITHROMYCIN 500MG/ 250ML 250 ML IV ONE (00:53)
[2023-06-06] MEDS: ALBUTEROL SULF 2.5 MG/0.5ML(0.5%) NEB SOLN NEB PRN (01:17)
[2023-06-06] MEDS: IPRATROPIUM BROM 0.5 MG/2.5ML INH SOL NEB SCH (01:17)
[2023-06-06] MEDS: FUROSEMIDE 40 MG/4 ML VIAL IV SCH (06:28)
[2023-06-06 06:51] LABS: Basophils # (auto) 0 10 ^3/uL (0-0.2); Basophils % (auto) 0.7 % (0.0-2.0); Eosinophils # (auto) 0.2 10 ^3/uL (0-0.8); Eosinophils % (auto) 4.1 % (0.0-7.0); Hematocrit 40.5 % (41.0-53.0); Hemoglobin 13.4 g/dL (13.5-17.5); Lymphocytes # (auto) 1.5 10 ^3/uL (0.4-5.4); Lymphocytes % (auto) 26.8 % (10.0-50.0); Mean Corpuscular Hgb Conc. 33.1 g/dL (32.0-36.0); Mean Corpuscular Volume 90.8 fL (80.0-100.0); Monocytes # (auto) 0.4 10 ^3/uL (0-1.3); Monocytes % (auto) 6.7 % (0.0-12.0); Neutrophils # (auto) 3.5 10 ^3/uL (1.6-8.6); Neutrophils % (auto) 61.7 % (37.0-80.0); Red Blood Cells 4.46 10^6/uL (4.5-5.90); Red Cell Distribution Width 14.4 % (11.8-14.3); White Blood Cell 5.7 10^3/uL (4.4-10.8)
[2023-06-06 06:55] LABS: Chloride 110 mmol/L (98-107); Potassium 3.6 mmol/L (3.5-5.1); Sodium 143 mmol/L (136-145)
[2023-06-06 06:56] LABS: Anion Gap 6 (5-15); Calcium 8.3 mg/dL (8.5-10.1); Carbon Dioxide 27 mmol/L (20-30)
[2023-06-06 07:01] LABS: BUN/Creatinine Ratio 20.6 (10.0-20.0); Blood Urea Nitrogen 22 mg/dL (9-23); Glucose 92 mg/dL (74-106); Triglycerides 79 mg/dL (< 150)
[2023-06-06 07:02] LABS: LDL Cholesterol 67 mg/dL (< 100)
[2023-06-06 07:03] LABS: Cholesterol 108 mg/dL (< 200); HDL Cholesterol 28 mg/dL (40-59)
[2023-06-06] MEDS: PANTOPRAZOLE 40 MG/10 ML VIAL INJ IV SCH (11:04)
[2023-06-06] MEDS: SENNA 8.6 MG TAB PO SCH (11:05)
[2023-06-06] MEDS: levoFLOXacin 500MG 100 ML IV SCH (11:05)
[2023-06-07] VITALS (17 sets, daily range): BP systolic 134–150; BP diastolic 65–115; PULSE 72–99; RESP 16–22; TEMP 97.3–98.6; O2SAT 95–100
[2023-06-07] MEDS: ENOXAPARIN SOD 80 MG/0.8ML SYRINGE SC SCH (22:15)
[2023-06-08] VITALS (17 sets, daily range): BP systolic 141–155; BP diastolic 102–116; PULSE 66–102; RESP 16–21; TEMP 97.4–98.1; O2SAT 95–99
[2023-06-08] MEDS: hydrALAZINE HCL 10 MG TAB PO PRN (04:36)
[2023-06-09] VITALS (15 sets, daily range): BP systolic 140–167; BP diastolic 97–111; PULSE 82–104; RESP 16–21; TEMP 97.7–98.2; O2SAT 92–100
[2023-06-09] MEDS ORDERED: FURO40TA4 PO (17:33)
[2023-06-09] MEDS ORDERED: CARV6.2551 PO (17:33)
[2023-06-09] MEDS ORDERED: LAMO100T44 PO (17:36)
[2023-06-09] MEDS ORDERED: QUET100T47 PO (17:36)
[2023-06-09] MEDS ORDERED: POTA-220 PO (17:36)
[2023-06-10] VITALS (13 sets, daily range): BP systolic 133–154; BP diastolic 91–106; PULSE 59–107; RESP 16–22; TEMP 97.4–98.5; O2SAT 94–100
[2023-06-10] MEDS ORDERED: LEVO500T91 PO (14:46)
[2023-06-11] VITALS (12 sets, daily range): BP systolic 133–145; BP diastolic 94–107; PULSE 60–100; RESP 16–20; TEMP 96.9–97.8; O2SAT 95–100
== END 2023-06-11 18:30 | disposition home or self-care (01) | DRG 139 ==
LOC: ER 18:52 → EDBD 18:52 → TELE 23:40 → TELE-WESTW 06-06 08:32
PROVIDERS: ADMIT Nurse Practitioner Family; ATTEND Internal Medicine
DX: J15.9 Unspecified bacterial pneumonia (principal); J96.00 Acute respiratory failure, unspecified whether with hypoxia or hypercapnia; I21.A1 Myocardial infarction type 2; I50.43 Acute on chronic combined systolic (congestive) and diastolic (congestive) heart failure; N18.6 End stage renal disease; I24.89 Other forms of acute ischemic heart disease; I13.2 Hypertensive heart and chronic kidney disease with heart failure and with stage 5 chronic kidney disease, or end stage renal disease; F15.10 Other stimulant abuse, uncomplicated; J98.11 Atelectasis; I25.10 Atherosclerotic heart disease of native coronary artery without angina pectoris; Z86.711 Personal history of pulmonary embolism; Z79.82 Long term (current) use of aspirin; Z82.49 Family history of ischemic heart disease and other diseases of the circulatory system
CPT/HCPCS: 36415; 71045; 74176; 80048; 80053; 80061; 80307; 81001; 83690; 83880; 84484; 85025; 93005; 93306; 94640; C9113; G0378; J1956; Q0162

== ENCOUNTER 2023-06-29 01:17 | Inpatient (IN) | payer MEDICAID ==
[~2023-06-29] VITALS: Ht 167.6 cm; Wt 68.1 kg
[2023-06-29] VITALS (14 sets, daily range): BP systolic 143–170; BP diastolic 100–132; PULSE 73–113; RESP 16–25; TEMP 98.1–98.7; O2SAT 94–100
[~2023-06-29 01:17] MED LIST changes: -CAR125T PO; +CARV6.2551 PO; -FURO1TAB31 PO; +FURO40TA4 PO; +LAMO100T44 PO; +LEVO500T91 PO; +POTA-220 PO; +QUET100T47 PO
[2023-06-29] MEDS ORDERED: NITROGLYCERIN 2% OINT 1GM PKG TD ONE (02:00)
[2023-06-29] MEDS: ACETAMINOPHEN 500 MG TAB PO ONE (02:06)
[2023-06-29] MEDS: levoFLOXacin 750MG 150 ML IV ONE (02:16)
[2023-06-29] MEDS: FUROSEMIDE 40 MG/4 ML VIAL IV ONE (02:17)
[2023-06-29 02:27] LABS: Alanine Aminotransferase 65 U/L (7-40); Albumin 3.7 g/dL (3.2-4.8); Alkaline Phosphatase 112 U/L (46-116); Anion Gap 9 (5-15); Aspartate Aminotransferase 86 U/L (13-40); BUN/Creatinine Ratio 10.1 (10.0-20.0); Blood Urea Nitrogen 15 mg/dL (9-23); Calcium 8.6 mg/dL (8.7-10.4); Carbon Dioxide 22 mmol/L (20-30); Chloride 111 mmol/L (98-107); Glucose 125 mg/dL (74-106); Potassium 3.8 mmol/L (3.5-5.1); Sodium 142 mmol/L (136-145)
[2023-06-29 02:28] LABS: Total Protein 6.6 g/dL (5.7-8.2)
[2023-06-29] MEDS: ALBUTEROL SULF 2.5 MG/0.5ML(0.5%) NEB SOLN NEB ONE (02:30)
[2023-06-29 02:36] LABS: Basophils # (auto) 0 10 ^3/uL (0-0.2); Basophils % (auto) 0.4 % (0.0-2.0); Eosinophils # (auto) 0.1 10 ^3/uL (0-0.8); Hematocrit 44.2 % (41.0-53.0); Hemoglobin 14.1 g/dL (13.5-17.5); Lymphocytes # (auto) 1.6 10 ^3/uL (0.4-5.4); Lymphocytes % (auto) 25.5 % (10.0-50.0); Mean Corpuscular Hemoglobin 29.6 pg (28.0-32.0); Mean Corpuscular Hgb Conc. 31.8 g/dL (32.0-36.0); Mean Corpuscular Volume 92.8 fL (80.0-100.0); Monocytes # (auto) 0.4 10 ^3/uL (0-1.3); Monocytes % (auto) 5.8 % (0.0-12.0); Neutrophils # (auto) 4.1 10 ^3/uL (1.6-8.6); Neutrophils % (auto) 67.3 % (37.0-80.0); Nucleated Red Blood Cells % 0.2 %; Red Blood Cells 4.76 10^6/uL (4.5-5.90); White Blood Cell 6.1 10^3/uL (4.4-10.8)
[2023-06-29 02:45] LABS: Urine Bacteria NONE SEEN /hpf (None Seen); Urine Blood Negative /uL (Negative); Urine Clarity Clear (Clear); Urine Color Yellow (Yellow); Urine Hyaline Cast FEW /lpf (0 - 2); Urine Mucus FEW (None Seen); Urine Protein, UAD 1+ (Negative); Urine Specific Gravity 1.014 (1.001-1.035); Urine WBC <1 /hpf (0 - 3)
[2023-06-29 02:48] LABS: Amphetamine Screen, Urine Pos (NEGATIVE); Barbiturate Scree,Urine Neg (NEGATIVE); Benzodiazephine Screen, Urine Neg (NEGATIVE); Cannabinoid Screen, Urine Neg (NEGATIVE); Cocaine Screen, Urine Neg (NEGATIVE); Opiate Scree,Urine Neg (NEGATIVE); Phencyclidine Screen, Urine Neg (NEGATIVE)
[2023-06-29 03:16] LABS: Lactic Acid w/Reflex 3.3 mmol/L (0.4-2.0)
[2023-06-29] MEDS: NITROGLYCERIN 0.4 MG SL TAB SL ONE (04:04)
[2023-06-29] MEDS: ASPirin 325 MG TAB PO ONE (04:05)
[2023-06-29] MEDS ORDERED: MORPHINE SULFATE INJ 2 MG/ml SYRG IV PRN (04:15)
[2023-06-29] MEDS ORDERED: NITROGLYCERIN 0.4 MG SL TAB SL PRN (04:15)
[2023-06-29] MEDS ORDERED: HYDROcodone-ACET 5/325MG TAB PO PRN (04:15)
[2023-06-29] MEDS ORDERED: MELATONIN 5 MG TAB PO PRN (04:15)
[2023-06-29] MEDS ORDERED: hydrALAZINE HCL 10 MG TAB PO PRN (04:30)
[2023-06-29] MEDS: hydrALAZINE HCL 20 MG/ML VL ONE (06:40)
[2023-06-29] MEDS: hydrALAZINE HCL 20 MG/ML VL IV PRN (06:41)
[2023-06-29] MEDS: IPRATROPIUM BROM 0.5 MG/2.5ML INH SOL NEB SCH (06:47)
[2023-06-29] MEDS: ENOXAPARIN SOD 100 MG/1 ML SYRINGE SC SCH (09:32)
[2023-06-29] MEDS: PANTOPRAZOLE 40 MG/10 ML VIAL INJ IV SCH (09:32)
[2023-06-29] MEDS: CARVEDILOL 3.125 MG TAB PO SCH (09:33)
[2023-06-29] MEDS: ASPirin 81 mg TAB PO SCH (09:33)
[2023-06-29] MEDS: FUROSEMIDE 40 MG/4 ML VIAL IV SCH (09:34)
[2023-06-29 15:49] LABS: COVID19 ANTIGEN SOFIA FIA NEGATIVE (NEGATIVE); Rapid Influenza A Negative (Negative); Rapid Influenza B Negative (Negative)
[2023-06-29] MEDS: cloNIDine HCL 0.1 MG TAB PO SCH (17:12)
[2023-06-29] MEDS: IOHEXOL 350 MG/ML 100ML IJ ONE (19:47)
[2023-06-29] MEDS: ACETAMINOPHEN 325 MG TAB PO PRN (21:34)
[2023-06-29] MEDS: ATORVASTATIN 20 MG TAB PO SCH (22:38)
[2023-06-29] MEDS: POTASSIUM CHL 20 Meq TABLET PO SCH (22:39)
[2023-06-30] VITALS (16 sets, daily range): BP systolic 130–140; BP diastolic 94–107; PULSE 74–93; RESP 16–24; TEMP 97.4–98.4; O2SAT 88–100
[2023-06-30] MEDS: levoFLOXacin 500MG 100 ML IV SCH (01:35)
[2023-06-30 05:39] LABS: Basophils # (auto) 0 10 ^3/uL (0-0.2); Basophils % (auto) 0.7 % (0.0-2.0); Eosinophils # (auto) 0.3 10 ^3/uL (0-0.8); Eosinophils % (auto) 6.9 % (0.0-7.0); Hematocrit 41.6 % (41.0-53.0); Hemoglobin 13.7 g/dL (13.5-17.5); Lymphocytes # (auto) 1.4 10 ^3/uL (0.4-5.4); Lymphocytes % (auto) 28.1 % (10.0-50.0); Mean Corpuscular Hemoglobin 29.7 pg (28.0-32.0); Mean Corpuscular Hgb Conc. 32.9 g/dL (32.0-36.0); Mean Corpuscular Volume 90.1 fL (80.0-100.0); Monocytes # (auto) 0.3 10 ^3/uL (0-1.3); Monocytes % (auto) 5.5 % (0.0-12.0); Neutrophils # (auto) 2.9 10 ^3/uL (1.6-8.6); Neutrophils % (auto) 58.8 % (37.0-80.0); Nucleated Red Blood Cells % 0.1 %; Red Blood Cells 4.62 10^6/uL (4.5-5.90); Red Cell Distribution Width 15.1 % (11.8-14.3); White Blood Cell 4.9 10^3/uL (4.4-10.8)
[2023-06-30 05:56] LABS: Chloride 106 mmol/L (98-107); Potassium 3.3 mmol/L (3.5-5.1); Sodium 140 mmol/L (136-145)
[2023-06-30 05:57] LABS: Anion Gap 6 (5-15); Calcium 8.3 mg/dL (8.5-10.1); Carbon Dioxide 28 mmol/L (20-30)
[2023-06-30 06:02] LABS: BUN/Creatinine Ratio 15.8 (10.0-20.0); Blood Urea Nitrogen 19 mg/dL (9-23); Glucose 136 mg/dL (74-106)
[2023-06-30] MEDS ORDERED: CARV6.2551 PO (16:11)
[2023-06-30] MEDS ORDERED: FURO40TA4 PO (16:11)
[2023-06-30] MEDS ORDERED: SACU1TAB PO (16:11)
[2023-06-30] MEDS ORDERED: POTA-220 PO (16:11)
[2023-06-30] MEDS ORDERED: QUET100T47 PO (16:11)
== END 2023-06-30 19:41 | disposition home or self-care (01) | DRG 133 ==
LOC: ER 01:17 → TELE 04:24 → TELE-CENTR 22:00
PROVIDERS: ADMIT Nurse Practitioner Family; ATTEND Hospitalist
DX: J96.01 Acute respiratory failure with hypoxia (principal); I21.A1 Myocardial infarction type 2; I50.23 Acute on chronic systolic (congestive) heart failure; N18.6 End stage renal disease; E87.20 Acidosis, unspecified; I42.0 Dilated cardiomyopathy; I13.2 Hypertensive heart and chronic kidney disease with heart failure and with stage 5 chronic kidney disease, or end stage renal disease; Z20.822 Contact with and (suspected) exposure to COVID-19; F15.10 Other stimulant abuse, uncomplicated; I25.2 Old myocardial infarction; Z59.00 Homelessness unspecified; Z86.711 Personal history of pulmonary embolism; Z91.148 Patient's other noncompliance with medication regimen for other reason; Z79.82 Long term (current) use of aspirin; Z79.899 Other long term (current) drug therapy; Z82.49 Family history of ischemic heart disease and other diseases of the circulatory system
CPT/HCPCS: 36415; 71045; 71275; 80048; 80053; 80307; 81001; 83605; 83735; 83880; 84484; 85025; 87040; 87086; 87426; 87804; 93005; 94640; 96365; 96366; 96375; 99291; C9113; G0378; J1956

== ENCOUNTER 2023-08-23 23:43 | Inpatient (IN) | payer MEDICAID ==
[~2023-08-23] VITALS: Ht 167.6 cm; Wt 67.1 kg
[~2023-08-23 23:43] MED LIST changes: -LEVO500T91 PO
[2023-08-24] VITALS (9 sets, daily range): BP systolic 156; BP diastolic 98; PULSE 77–103; RESP 16–20; O2SAT 94–100
[2023-08-24 01:50] LABS: Basophils # (auto) 0 10 ^3/uL (0-0.2); Basophils % (auto) 0.5 % (0.0-2.0); Eosinophils # (auto) 0.1 10 ^3/uL (0-0.8); Eosinophils % (auto) 1.8 % (0.0-7.0); Hematocrit 45.8 % (41.0-53.0); Hemoglobin 14.4 g/dL (13.5-17.5); Lymphocytes # (auto) 1.7 10 ^3/uL (0.4-5.4); Lymphocytes % (auto) 25.6 % (10.0-50.0); Mean Corpuscular Hemoglobin 28.8 pg (28.0-32.0); Mean Corpuscular Hgb Conc. 31.5 g/dL (32.0-36.0); Mean Corpuscular Volume 91.5 fL (80.0-100.0); Monocytes # (auto) 0.3 10 ^3/uL (0-1.3); Monocytes % (auto) 4.8 % (0.0-12.0); Neutrophils # (auto) 4.4 10 ^3/uL (1.6-8.6); Neutrophils % (auto) 67.3 % (37.0-80.0); Nucleated Red Blood Cells % 0.2 %; Red Cell Distribution Width 17.3 % (11.8-14.3); White Blood Cell 6.5 10^3/uL (4.4-10.8)
[2023-08-24 01:54] LABS: Chloride 109 mmol/L (98-107); Potassium 3.9 mmol/L (3.5-5.1); Sodium 140 mmol/L (136-145)
[2023-08-24 01:55] LABS: Anion Gap 10 (5-15); Carbon Dioxide 21 mmol/L (20-30)
[2023-08-24 01:56] LABS: Calcium 8.8 mg/dL (8.5-10.1)
[2023-08-24 02:01] LABS: BUN/Creatinine Ratio 15.2 (10.0-20.0); Blood Urea Nitrogen 20 mg/dL (9-23); Glucose 111 mg/dL (74-106)
[2023-08-24] MEDS ORDERED: NITROGLYCERIN 0.4 MG SL TAB SL PRN (03:30)
[2023-08-24] MEDS ORDERED: MORPHINE SULFATE INJ 2 MG/ml SYRG IV PRN (03:30)
[2023-08-24] MEDS ORDERED: ACETAMINOPHEN 325 MG TAB PO PRN (03:30)
[2023-08-24] MEDS ORDERED: ONDANSETRON HCL 4 MG/2 ML VIAL IV PRN (03:30)
[2023-08-24] MEDS: ASPirin 325 MG TAB PO ONE (03:34)
[2023-08-24] MEDS ORDERED: hydrALAZINE HCL 20 MG/ML VL IV PRN (04:00)
[2023-08-24] MEDS: FUROSEMIDE 100 MG/10ML VIAL IV ONE (04:52)
[2023-08-24 05:30] LABS: Basophils # (auto) 0 10 ^3/uL (0-0.2); Basophils % (auto) 0.8 % (0.0-2.0); Eosinophils # (auto) 0.2 10 ^3/uL (0-0.8); Eosinophils % (auto) 2.9 % (0.0-7.0); Hematocrit 43.1 % (41.0-53.0); Hemoglobin 13.9 g/dL (13.5-17.5); Lymphocytes # (auto) 1.6 10 ^3/uL (0.4-5.4); Lymphocytes % (auto) 26.4 % (10.0-50.0); Mean Corpuscular Hemoglobin 28.5 pg (28.0-32.0); Mean Corpuscular Hgb Conc. 32.1 g/dL (32.0-36.0); Mean Corpuscular Volume 88.8 fL (80.0-100.0); Monocytes # (auto) 0.3 10 ^3/uL (0-1.3); Monocytes % (auto) 4.6 % (0.0-12.0); Neutrophils # (auto) 3.9 10 ^3/uL (1.6-8.6); Neutrophils % (auto) 65.3 % (37.0-80.0); Nucleated Red Blood Cells % 0.2 %; Red Blood Cells 4.85 10^6/uL (4.5-5.90); Red Cell Distribution Width 16.7 % (11.8-14.3)
[2023-08-24 05:44] LABS: Anion Gap 11 (5-15); Carbon Dioxide 23 mmol/L (20-30); Chloride 107 mmol/L (98-107); Sodium 141 mmol/L (136-145)
[2023-08-24 05:45] LABS: Amphetamine Screen, Urine Pos (NEGATIVE); Barbiturate Scree,Urine Neg (NEGATIVE); Benzodiazephine Screen, Urine Neg (NEGATIVE); Cocaine Screen, Urine Neg (NEGATIVE)
[2023-08-24 05:45] LABS: Calcium 8.7 mg/dL (8.5-10.1)
[2023-08-24 05:46] LABS: Cannabinoid Screen, Urine Neg (NEGATIVE); Opiate Scree,Urine Neg (NEGATIVE); Phencyclidine Screen, Urine Neg (NEGATIVE)
[2023-08-24 05:50] LABS: BUN/Creatinine Ratio 17.7 (10.0-20.0); Blood Urea Nitrogen 23 mg/dL (9-23); Glucose 130 mg/dL (74-106)
[2023-08-24] MEDS: IPRATROPIUM BROM 0.5 MG/2.5ML INH SOL NEB SCH (06:38)
[2023-08-24] MEDS: ALBUTEROL SULF 2.5 MG/0.5ML(0.5%) NEB SOLN NEB SCH (06:38)
[2023-08-24] MEDS: POTASSIUM CHL 20 Meq TABLET PO SCH (10:01)
[2023-08-24] MEDS: SACUBITRIL-VALSARTAN 24mg/26mg TAB PO SCH (10:01)
[2023-08-24] MEDS: ASPirin 81 mg TAB PO SCH (10:01)
[2023-08-24] MEDS: levoFLOXacin 500MG 100 ML IV SCH (10:01)
[2023-08-24] MEDS: ENOXAPARIN SOD 40 MG/0.4 ML SYRINGE SC SCH (10:01)
[2023-08-24] MEDS: CARVEDILOL 3.125 MG TAB PO SCH (10:02)
[2023-08-24] MEDS: ATORVASTATIN 20 MG TAB PO SCH (10:02)
[2023-08-24] MEDS: HYDROcodone-ACET 5/325MG TAB PO PRN (12:31)
[2023-08-24] MEDS: FUROSEMIDE 40 MG/4 ML VIAL IV SCH (18:00)
[2023-08-25] VITALS (14 sets, daily range): BP systolic 118–139; BP diastolic 85–96; PULSE 54–88; RESP 14–22; TEMP 98.1–98.6; O2SAT 92–100
[2023-08-25 04:50] LABS: Basophils # (auto) 0.1 10 ^3/uL (0-0.2); Basophils % (auto) 0.8 % (0.0-2.0); Eosinophils # (auto) 0.4 10 ^3/uL (0-0.8); Eosinophils % (auto) 6.5 % (0.0-7.0); Hematocrit 41.8 % (41.0-53.0); Hemoglobin 13.5 g/dL (13.5-17.5); Lymphocytes # (auto) 1.3 10 ^3/uL (0.4-5.4); Lymphocytes % (auto) 20.4 % (10.0-50.0); Mean Corpuscular Hemoglobin 28.6 pg (28.0-32.0); Mean Corpuscular Hgb Conc. 32.3 g/dL (32.0-36.0); Mean Corpuscular Volume 88.4 fL (80.0-100.0); Monocytes # (auto) 0.3 10 ^3/uL (0-1.3); Monocytes % (auto) 5.4 % (0.0-12.0); Neutrophils # (auto) 4.1 10 ^3/uL (1.6-8.6); Neutrophils % (auto) 66.9 % (37.0-80.0); Nucleated Red Blood Cells % 0.2 %; Red Blood Cells 4.72 10^6/uL (4.5-5.90); Red Cell Distribution Width 16.6 % (11.8-14.3); White Blood Cell 6.1 10^3/uL (4.4-10.8)
[2023-08-25 05:01] LABS: Chloride 105 mmol/L (98-107); Potassium 3.2 mmol/L (3.5-5.1); Sodium 140 mmol/L (136-145)
[2023-08-25 05:02] LABS: Anion Gap 10 (5-15); Calcium 8.2 mg/dL (8.5-10.1); Carbon Dioxide 25 mmol/L (20-30)
[2023-08-25 05:07] LABS: BUN/Creatinine Ratio 17.1 (10.0-20.0); Blood Urea Nitrogen 20 mg/dL (9-23); Glucose 120 mg/dL (74-106)
[2023-08-25] MEDS ORDERED: LAMO25TA27 PO (15:33)
[2023-08-26] VITALS (11 sets, daily range): BP systolic 116–144; BP diastolic 75–101; PULSE 57–95; RESP 16–22; TEMP 97.7–98.3; O2SAT 93–100
[2023-08-26 06:55] LABS: Chloride 104 mmol/L (98-107); Potassium 3.7 mmol/L (3.5-5.1); Sodium 139 mmol/L (136-145)
[2023-08-26 06:56] LABS: Anion Gap 8 (5-15); Carbon Dioxide 27 mmol/L (20-30)
[2023-08-26 06:57] LABS: Calcium 8.8 mg/dL (8.5-10.1)
[2023-08-26 07:01] LABS: BUN/Creatinine Ratio 20.5 (10.0-20.0); Blood Urea Nitrogen 26 mg/dL (9-23); Glucose 113 mg/dL (74-106)
[2023-08-26] MEDS: DOCUSATE SOD 100 MG CAP PO PRN (09:27)
[2023-08-26] MEDS ORDERED: SACU1TAB PO (14:48)
[2023-08-26] MEDS ORDERED: CARV6.2551 PO (14:48)
[2023-08-26] MEDS ORDERED: POTA-220 PO (14:48)
[2023-08-26] MEDS ORDERED: LAMO25TA27 PO (14:48)
[2023-08-26] MEDS ORDERED: QUET100T47 PO (14:48)
[2023-08-26] MEDS ORDERED: FURO40TA4 PO (14:48)
[2023-08-26] MEDS ORDERED: CLON0.1T PO (14:48)
[2023-08-26] MEDS: lamoTRIgine 25 MG TAB PO SCH (16:15)
[2023-08-26] MEDS: QUEtiapine FUMARATE 25 MG TAB PO SCH (20:57)
[2023-08-27 01:00] VITALS: BP 141/89; PULSE 85; RESP 18; TEMP 98.3; O2SAT 95
[2023-08-27 05:00] VITALS: BP 130/69; PULSE 81; RESP 18; TEMP 98.2; O2SAT 96
[2023-08-27 06:27] LABS: Chloride 106 mmol/L (98-107); Potassium 3.6 mmol/L (3.5-5.1); Sodium 139 mmol/L (136-145)
[2023-08-27 06:28] LABS: Anion Gap 7 (5-15); Calcium 8.3 mg/dL (8.5-10.1); Carbon Dioxide 26 mmol/L (20-30)
[2023-08-27 06:33] LABS: BUN/Creatinine Ratio 21.1 (10.0-20.0); Blood Urea Nitrogen 23 mg/dL (9-23); Glucose 101 mg/dL (74-106)
[2023-08-27 08:00] VITALS: PULSE 81
[2023-08-27 08:50] VITALS: BP 94/59; PULSE 79; RESP 18; TEMP 97.6; O2SAT 95
[2023-08-27 12:35] VITALS: BP 116/74; PULSE 79; RESP 20; TEMP 98.3; O2SAT 94
[2023-08-27 13:54] VITALS: BP 112/77; PULSE 85
== END 2023-08-27 17:00 | disposition home or self-care (01) | DRG 137 ==
LOC: ER 23:43 → EDBD 23:43 → TELE 08-24 03:47 → CENTRAL 08-25 17:58 → TELE-CENTR 08-25 21:55
PROVIDERS: ADMIT Nurse Practitioner Family; ATTEND Hospitalist
DX: J15.69 Pneumonia due to other Gram-negative bacteria (principal); J96.01 Acute respiratory failure with hypoxia; I21.A1 Myocardial infarction type 2; I50.33 Acute on chronic diastolic (congestive) heart failure; I42.9 Cardiomyopathy, unspecified; N18.6 End stage renal disease; J44.9 Chronic obstructive pulmonary disease, unspecified; I13.2 Hypertensive heart and chronic kidney disease with heart failure and with stage 5 chronic kidney disease, or end stage renal disease; E87.70 Fluid overload, unspecified; F15.10 Other stimulant abuse, uncomplicated; I25.10 Atherosclerotic heart disease of native coronary artery without angina pectoris; I49.3 Ventricular premature depolarization; J98.11 Atelectasis; Z59.00 Homelessness unspecified; Z79.82 Long term (current) use of aspirin; Z79.899 Other long term (current) drug therapy; Z91.199 Patient's noncompliance with other medical treatment and regimen due to unspecified reason; I25.2 Old myocardial infarction; Z82.49 Family history of ischemic heart disease and other diseases of the circulatory system; Z86.711 Personal history of pulmonary embolism
CPT/HCPCS: 36415; 71045; 80048; 80307; 83880; 84484; 85025; 87081; 93005; 93306; 94640; 99291; G0378; J1956

== ENCOUNTER 2023-10-21 00:28 | Emergency (ER) | payer MEDICAID ==
[~2023-10-21] VITALS: Ht 167.6 cm; Wt 68.2 kg
[~2023-10-21 00:28] MED LIST changes: -ALBUAER3 IN; -ASPI81CH43 PO; -IPRIH IN; -LAMO100T44 PO; +LAMO25TA27 PO
[2023-10-21 01:05] LABS: Basophils # (auto) 0 10 ^3/uL (0-0.2); Basophils % (auto) 0.9 % (0.0-2.0); Eosinophils # (auto) 0.3 10 ^3/uL (0-0.8); Eosinophils % (auto) 6.2 % (0.0-7.0); Hematocrit 44.5 % (41.0-53.0); Hemoglobin 14.6 g/dL (13.5-17.5); Lymphocytes # (auto) 1.7 10 ^3/uL (0.4-5.4); Lymphocytes % (auto) 33.1 % (10.0-50.0); Mean Corpuscular Hemoglobin 28.8 pg (28.0-32.0); Mean Corpuscular Hgb Conc. 32.8 g/dL (32.0-36.0); Mean Corpuscular Volume 87.9 fL (80.0-100.0); Monocytes # (auto) 0.5 10 ^3/uL (0-1.3); Neutrophils # (auto) 2.5 10 ^3/uL (1.6-8.6); Neutrophils % (auto) 49.8 % (37.0-80.0); Nucleated Red Blood Cells % 0.1 %; Red Blood Cells 5.07 10^6/uL (4.5-5.90); Red Cell Distribution Width 17.2 % (11.8-14.3); White Blood Cell 5.1 10^3/uL (4.4-10.8)
[2023-10-21 01:22] LABS: INR 1.08 (0.9-1.15); Partial Thromboplastin Time 27.1 SEC (24.5-34.5); Prothrombin Time 11.4 sec (9.3-11.8)
[2023-10-21 01:23] LABS: Alanine Aminotransferase 31 U/L (7-40); Albumin 3.9 g/dL (3.2-4.8); Alkaline Phosphatase 103 U/L (46-116); Anion Gap 6 (5-15); Aspartate Aminotransferase 35 U/L (13-40); BUN/Creatinine Ratio 13.7 (10.0-20.0); Blood Urea Nitrogen 16 mg/dL (9-23); Calcium 9.3 mg/dL (8.7-10.4); Carbon Dioxide 26 mmol/L (20-30); Chloride 111 mmol/L (98-107); Glucose 134 mg/dL (74-106); Potassium 3.4 mmol/L (3.5-5.1); Sodium 143 mmol/L (136-145)
[2023-10-21 01:24] LABS: Bilirubin, Total 0.8 mg/dL (0.2-1.0); Total Protein 6.7 g/dL (5.7-8.2)
[2023-10-21 03:00] VITALS: TEMP 98.3
[2023-10-21] MEDS: ASPirin 81 mg TAB PO ONE (03:12)
[2023-10-21] MEDS: NITROGLYCERIN 2% OINT 1GM PKG TD ONE (03:13)
[2023-10-21] MEDS: HYDROcodone-ACET 5/325MG TAB PO ONE (03:45)
[2023-10-21] MEDS: FUROSEMIDE 40 MG/4 ML VIAL IV ONE (03:45)
[2023-10-21 04:30] VITALS: PULSE 86; RESP 17; O2SAT 92
[2023-10-21 04:45] VITALS: O2SAT 92
[2023-10-21 06:24] LABS: Urine Bacteria None Seen /hpf (None Seen)
[2023-10-21 06:45] VITALS: BP 145/101; PULSE 75; RESP 22
[2023-10-21 06:45] LABS: Urine Blood Negative /uL (Negative); Urine Clarity Clear (Clear); Urine Color Light-Yellow (Yellow); Urine Hyaline Cast FEW /lpf (0 - 2); Urine Mucus FEW (None Seen); Urine Protein, UAD Negative (Negative); Urine Specific Gravity 1.009 (1.001-1.035); Urine Urobilinogen Normal (Negative); Urine WBC 1 /hpf (0 - 3); Urine pH 6.5 (5.0-9.0)
[2023-10-21 06:51] LABS: Amphetamine Screen, Urine Pos (NEGATIVE); Barbiturate Scree,Urine Neg (NEGATIVE); Benzodiazephine Screen, Urine Neg (NEGATIVE); Cannabinoid Screen, Urine Pos (NEGATIVE); Cocaine Screen, Urine Neg (NEGATIVE); Opiate Scree,Urine Neg (NEGATIVE); Phencyclidine Screen, Urine Neg (NEGATIVE)
[2023-10-21] MEDS: POTASSIUM CHL 20 Meq TABLET PO ONE (08:23)
[2023-10-21] MEDS: hydrALAZINE HCL 20 MG/ML VL IV ONE (08:23)
== END 2023-10-21 09:08 | disposition home or self-care (01) ==
LOC: EDBD 00:28 → ER 00:28
DX: R07.9 Chest pain, unspecified (principal); I13.0 Hypertensive heart and chronic kidney disease with heart failure and stage 1 through stage 4 chronic kidney disease, or unspecified chronic kidney disease; N18.9 Chronic kidney disease, unspecified; I50.9 Heart failure, unspecified; J44.9 Chronic obstructive pulmonary disease, unspecified; Z79.899 Other long term (current) drug therapy
CPT/HCPCS: 36415; 71045; 80053; 80307; 81001; 82550; 83735; 83880; 84484; 85025; 85610; 85730; 93005; 96374; 96375; 99285; J0360; J1940